=== PATIENT | male | born 1955 | race Two or more races ===

== ENCOUNTER 2019-10-11 06:00 | Day surgery (SDC) | payer OTHER | END 2019-10-11 10:40 | disposition home or self-care (01) | LOC: AMB-ENDOS 06:00 | PROVIDERS: ATTEND Surgery | DX: D12.2 Benign neoplasm of ascending colon (principal); D12.3 Benign neoplasm of transverse colon; K62.82 Dysplasia of anus; K64.8 Other hemorrhoids; Z20.828 Contact with and (suspected) exposure to other viral communicable diseases ==

== ENCOUNTER 2019-10-13 04:36 | Inpatient (IN) | payer OTHER ==
[~2019-10-13] VITALS: Ht 167.6 cm; Wt 56.2 kg
[2019-10-13] MEDS ORDERED: COZAAR50 MG (04:54)
[2019-10-13] MEDS ORDERED: FOLIC ACID1 MG (04:54)
== END 2019-10-17 12:04 | disposition home or self-care (01) | DRG 920 ==
LOC: ER 04:36 → SURH 11:18 → SURG 10-14 11:43
PROVIDERS: ADMIT Surgery; ATTEND Surgery
PROC: 0W3P8ZZ Control Bleeding in Gastrointestinal Tract, Via Natural or Artificial Opening Endoscopic (ICD-10-PCS; principal; 2019-10-15)
DX: K91.840 Postprocedural hemorrhage of a digestive system organ or structure following a digestive system procedure (principal); K62.5 Hemorrhage of anus and rectum; Y83.8 Other surgical procedures as the cause of abnormal reaction of the patient, or of later complication, without mention of misadventure at the time of the procedure; I10 Essential (primary) hypertension